=== PATIENT | female | born 1925 | race Caucasian/White ===

== ENCOUNTER → 2016-03-14 | Outpatient (CLI) | payer OTHER, MEDICARE ==
--- NOTE | 2016-03-14 12:26 | MA ---
Screening Digital Mammogram With iCAD Analysis Clinical Indications: Routine screening. The patient has had left breast cancer treated with lumpect donal and radiation. Technique: Standard cephalocaudal and mediolateral oblique projections were obtained. This examinatio n was processed by the iCAD computer aided detection system. Comparison: February 2015, January 2014, February 2013, February 2012, February 2011, January 2010, March 2008. Breast density: Type B; Scattered fibroglandular densities. Findings: CAD was reviewed. Architectural change at the left breast lumpectomy site is stable. No mas ses, suspicious calcifications or other signs of malignancy are identified. There has been no signif icant change in the appearance of either breast. Vascular calcifications are noted. Impression: Benign post lumpectomy mammography, BI-RADS 2 Recommendation: Routine mammographic screening in one year as long as physical examination is neg[facility]. Negative mammography should not preclude additional workup of a clinically suspicious finding. The patient's information is entered into a reminder system with a target due date for her next mammo gram.
== END ==
LOC: BMCIMAGING 10:30
DX: Z12.31 Encounter for screening mammogram for malignant neoplasm of breast (principal); Z85.3 Personal history of malignant neoplasm of breast
CPT/HCPCS: G0202

== ENCOUNTER → 2016-09-11 | Outpatient (CLI) | payer OTHER, MEDICARE | LOC: BHFA 10:00 | PROVIDERS: ATTEND Internal Medicine Cardiovascular Disease | DX: R94.31 Abnormal electrocardiogram [ECG] [EKG] (principal); R01.1 Cardiac murmur, unspecified ==

== ENCOUNTER 2016-09-18 12:52 | Emergency (ER) | payer OTHER, MEDICARE ==
[2016-09-18 12:59] VITALS: RESP 16; TEMP 97.9
--- NOTE | 2016-09-18 14:24 | EDPHY ---
H & P Stated Complaint: L arm injury Time Seen by Provider: 09/18/16 13:33 - Personal History Current Tetanus/Diphtheria Vaccine: Unsure Current Tetanus Diphtheria and Acellular Pertussis (TDAP): Unsure - Medical/Surgical History Hx Asthma: No Hx Chronic Respiratory Disease: No Hx Diabetes: No Hx Cardiac Disease: Yes Hx Renal Disease: No Hx Cirrhosis: No Hx Alcoholism: No Hx HIV/AIDS: No Hx Splenectomy or Spleen Trauma: No Other PMH: Breast cancer, lumpectomy, HTN, CVA - Social History Smoking Status: Never smoked Constitutional: Initial Vital Signs Temperature (C) 36.6 C 09/18/16 12:55 Heart Rate 57 L 09/18/16 12:55 Respiratory Rate 16 09/18/16 12:55 Blood Pressure 146/84 H 09/18/16 12:55 O2 Sat (%) 96 09/18/16 12:55 O2 Delivery Mode Room Air Allergies/Adverse Reactions: WASPS Allergy (Severe, 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/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 Home Medications: Medication Instructions Recorded LORazepam [Ativan (*)] 1 - 2 mg PO HS PRN 01/30/15 Lisinopril [Zestril 20 mg (*)] 20 mg PO DAILY@19 01/30/15 Multivitamins [Multivitamin (*)] 1 tab PO DAILY@19 01/30/15 Apixaban [Eliquis] 2.5 mg PO BID #60 tab 02/02/15 Atorvastatin Calcium [Lipitor 10 10 mg PO DAILY #30 tab 02/02/15 mg (*)] Nebivolol HCl [Bystolic 5 mg (*)] 5 mg PO DAILY #30 tab 02/02/15 Cephalexin [Keflex (RX)] 500 mg PO TID #30 cap 02/06/15 Ondansetron Odt [Zofran Odt 4 mg 4 mg PO Q4 PRN #10 tab 02/06/15 (RX)] Hydrocodone/APAP 5/325 [[place] 1 - 2 each PO Q4-6PRN PRN #20 tab 09/18/16 5/325] Medical Decision Making - Diagnostics Imaging Results: Imaging Impressions Forearm X-Ray 09/18/16 12:59 Impression: 1. Acute angulated distal ulna fracture. 2. Scapholunate ligament tear versus laxity. Imaging: I viewed and interpreted images myself ED Course/Re-evaluation: CHIEF COMPLAINT: Left arm pain HISTORY OF PRESENT ILLNESS: The patient is an anticoagulated 89 y/o female arriving via EMS with her family complaining of left arm pain. She was at the park with her great granddaughter and helping her across a tight rope. The child slipped and fell dragging the patient's left forearm into a wooden post. She had immediate pain along the ulnar aspect of her forearm. She did not fall or hit her head. She denies weakness, paresthesia, lacerations, abrasions, fever , dyspnea, chest pain. REVIEW OF SYSTEMS: A 10 point review of systems was performed and is negative with the exception of the elements mentioned in the history of present illness. PHYSICAL EXAM: HR, BP, O2 Sat, RR. Temp noted General Appearance: Alert, well hydrated, appropriate, and non-toxic appearing. Head: Atraumatic without scalp tenderness or obvious injury Eyes: Pupils equal, round, reactive to light and accommodation, EOMI, no trauma , no injection. Ears: Clear bilaterally, no perforation, normal landmarks Nose: Atraumatic, no rhinorrhea, clear. Throat: Mucus membranes moist. Neck: Supple, non-tender. Respiratory: No retractions, no distress, no wheezes, and no accessory muscle use. Lungs are clear to auscultation bilaterally. Cardiovascular: Regular rate and rhythm, no murmurs, rubs, or gallops. Good capillary refill all extremities. Gastrointestinal: Abdomen is soft, non-tender, non-distended, no masses, no rebound, no guarding, no peritoneal signs. Musculoskeletal: Arrives in an EMS splint. Left forearm tenderness along ulnar aspect. Pain with ROM of left forearm and wrist. Other extremities have normal active ROM and are atraumatic. Neurological: Alert, appropriate, and interactive. Non-focal neuro. Skin: No rashes, good turgor, no nodules on palpation. PAST MEDICAL HISTORY: Hypertension, breast cancer, CVA- Eliquis PAST SURGICAL HISTORY: Lumpectomy, lymph node dissection SOCIAL HISTORY: Family at bedside, lives in [place], retired, [facility] patient Prior medical records reviewed admission note on 01/30/15 DIAGNOSTICS/PROCEDURES/CRITICAL CARE TIME: Left forearm x-ray: Displaced distal ulnar fracture DIFFERENTIAL DIAGNOSIS: The differential diagnosis for the patient's left forearm injury included but was not limited to distal ulnar fracture, ligamentous injury, contusion, muscular strain. MEDICAL DECISION MAKING: The patient is an 89 y/o who presents with tenderness to the left forearm after hitting her arm on a play structure at a park. She has tenderness with any ROM of her left forearm. She is neurovascularly intact distal to the injury, no tenting, skin is intact over the injury, no evidence of compartment syndrome, and joints above and below the injury are stable. No other trauma noted on exam. She is a [facility] patient, therefore we will contact Dr. Aguirre, orthopedist, for a consult. 50mcg IV Fentanyl administered for pain. 1505: Consulted with Dr. Aguirre, orthopedist, he recommends placing her in a splint and following up as an outpatient with his office. Reassessed patient and discussed recommendations. Standard arm fracture and splint care instructions given. She will be discharged with a prescription for [place]. Return precautions given. She is comfortable with this plan. - Data Points Medications Given: Discontinued Medications Fentanyl (Sublimaze) 50 mcg IVP EDNOW ONE Stop: 09/18/16 14:33 Last Admin: 09/18/16 14:47 Dose: 50 mcg Departure - Departure Disposition: Home, Routine, Self-Care Clinical Impression: Distal end of ulna fracture, closed Qualifiers: Encounter type: initial encounter Fracture morphology: other fracture Laterality: left Qualified Code(s): S52.692A - Other fracture of lower end of left ulna, initial encounter for closed fracture Condition: Good Instructions: Hydrocodone/Acetaminophen (By mouth), Arm Fracture in Adults (ED) Additional Instructions: 1. Take [place] as prescribed when needed for severe pain. Narcotics can cause constipation, follow a high fiber diet and take constipation precautions while taking this medication. This medication can make you drowsy, do not drive while taking it. 2. Follow up with Dr. Aguirre, orthopedist, this week without fail. 3. Keep splint in place and dry until follow up. 4. Apply ice and elevate arm when possible. 5. Return to the ED for severe pain, weakness and numbness in your fingers, or worsening of your condition. Referrals: Yoly Martinez MD [Primary Care Provider] - As per Instructions Israel Aguirre MD [Medical Doctor] - As per Instructions Prescriptions: Hydrocodone/APAP 5/325 [[place] 5/325] 1 - 2 each PO Q4-6PRN PRN #20 tab PRN Reason: Pain, Moderate Report Scribed for: Constantine Pulido Report Scribed by: Tamy Altman Date of Report: 09/18/16 Time of Report: 14:45
[2016-09-18] MEDS ORDERED: fentaNYL 100 MCG/2 ML INJ IVP ONE (14:32)
[2016-09-18 14:52] VITALS: BP 142/71; PULSE 50; O2SAT 95
== END 2016-09-18 16:09 | disposition home or self-care (01) ==
LOC: EDUNIT#
PROC: 2W3DX1Z Immobilization of Left Lower Arm using Splint (ICD-10-PCS; principal; 2016-09-18)
DX: S52.692A Other fracture of lower end of left ulna, initial encounter for closed fracture (principal); I10 Essential (primary) hypertension; Z85.3 Personal history of malignant neoplasm of breast; Z86.73 Personal history of transient ischemic attack (TIA), and cerebral infarction without residual deficits; W01.0XXA Fall on same level from slipping, tripping and stumbling without subsequent striking against object, initial encounter
CPT/HCPCS: 29125; 73090; 96374; 99284; J3010

== ENCOUNTER → 2016-09-28 | Outpatient (CLI) | payer OTHER, MEDICARE | LOC: BMCIMAGING 12:40 | PROVIDERS: ATTEND Physician Assistant | DX: S52.692D Other fracture of lower end of left ulna, subsequent encounter for closed fracture with routine healing (principal) ==

== ENCOUNTER → 2016-10-26 | Outpatient (CLI) | payer OTHER, MEDICARE | LOC: BMCIMAGING 10:15 | PROVIDERS: ATTEND Physician Assistant | DX: S52.692D Other fracture of lower end of left ulna, subsequent encounter for closed fracture with routine healing (principal); M81.0 Age-related osteoporosis without current pathological fracture ==

== ENCOUNTER → 2016-11-30 | Outpatient (CLI) | payer OTHER, MEDICARE | LOC: FIMAGING 12:28 | PROVIDERS: ATTEND Physician Assistant | DX: S52.692A Other fracture of lower end of left ulna, initial encounter for closed fracture (principal); S63.592A Other specified sprain of left wrist, initial encounter; M25.832 Other specified joint disorders, left wrist; M77.8 Other enthesopathies, not elsewhere classified ==

== ENCOUNTER 2016-12-11 12:43 | Emergency (ER) | payer OTHER, MEDICARE ==
[2016-12-11 12:52] VITALS: TEMP 98.1
--- NOTE | 2016-12-11 13:54 | EDPHY ---
H & P Time Seen by Provider: 12/11/16 13:21 HPI/ROS: CHIEF COMPLAINT: Fall HISTORY OF PRESENT ILLNESS: Patient is an 89-year-old female with a history of breast cancer, hypertension and CVA who presents emergency department after having a fall. The patient states she woke up normally. She had a normal morning. She was sitting in the chair talking on the phone. When she finished she stood up. On her 2nd step her left knee "just gave out." She had no preceding symptoms. She did not feel lightheaded or dizzy. No chest pain or shortness of breath. She fell and struck her left knee and left ankle. She now has mild left ankle pain and abrasion on her left knee. She denies significant discomfort. She did not strike her head. She did not lose consciousness. No complaints since the fall. No nausea or vomiting. No focal deficits. REVIEW OF SYSTEMS: My complete review of systems is negative except as mentioned in the HPI. Past Medical/Surgical History: Includes CVA, hypertension, breast CA Past surgical history: Includes lumpectomy Social history: The patient does not smoke Smoking Status: Never smoked Physical Exam: Vitals noted GENERAL: Well-appearing, in no acute distress, alert. HEENT: PERRLA, normal pharynx, no signs of dehydration. No visible signs of trauma. NECK: No thyromegaly, no lymphadenopathy, supple. No spinal tenderness. Nexus negative. RESPIRATORY: Clear to auscultation bilaterally, no rales, rhonchi or wheezing. CVS: Regular rate and rhythm, no rubs, murmurs, or gallops. ABDOMEN: Soft, nontender, nondistended, no organomegaly. BACK: Normal to inspection, no CVA tenderness. No spinal tenderness SKIN: Normal color, no rash, warm, dry. No pallor. EXTREMITIES: Patient has an abrasion over her left patella. There is no patellar tenderness or deformity. Patient also has mild tenderness over her lateral malleolus. There is mild swelling. There is no other noted tenderness , deformity or signs of trauma on her other extremities. She has full range of motion. The she was able to stand after the fall. NEURO/PSYCH: Higher functions: Alert and Oriented x3. Normal speech and cognition. Normal mood and affect. Cranial nerves: Normal as tested. Cerebellar: Normal as tested. Good finger to nose, good [id number], normal gait. Peripheral exam: Normal motor exam. Normal sensation. Normal reflexes. 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 Knee X-Ray 12/11/16 13:56 Impression: Normal. ED Course/Re-evaluation: In the emergency room discussed possible etiologies with the patient. I answered all her questions. An x-ray of her left ankle and left knee was performed. Laboratory studies were obtained. Left foot x-ray: Please refer the dictated report. The patient has a fracture at the base of her left 5th metatarsal. Sinus rhythm. First-degree AV block. Left axis deviation. No CT abnormality. The CBC, chemistry and troponin were negative. Left knee x-ray: Please refer the dictated report. No acute disease noted. I discussed the results with the patient. A Britton boot was placed. She ambulated well in the emergency department. She was stable. She is given warnings prior to leaving. She will return with worsening symptoms. Differential Diagnosis: My differential includes but is not limited to mechanical fall, disruption of the knee ligaments, knee injury, ankle sprain, ankle strain, ankle contusion, ankle fracture. The patient denies striking her head. She has no headache. I doubt closed head injury. I doubt subarachnoid hemorrhage, subdural hematoma or epidural hematoma. I am aware the patient is on Eliquis. - Data Points Laboratory Results: Laboratory Results 12/11/16 14:27 12/11/16 14:27 12/11/16 12/11/16 14:27 14:27 WBC 7.74 10^3/uL 10^3/uL (3.80-9.50) RBC 4.28 10^6/uL 10^6/uL (4.18-5.33) Hgb 14.1 g/dL g/dL (12.6-16.3) Hct 41.9 % % (38.0-47.0) MCV 97.9 fL fL (81.5-99.8) MCH 32.9 pg pg (27.9-34.1) MCHC 33.7 g/dL g/dL (32.4-36.7) RDW 12.7 % % (11.5-15.2) Plt Count 245 10^3/uL 10^3/uL (150-400) MPV 8.9 fL fL (8.7-11.7) Neut % (Auto) 69.3 % % (39.3-74.2) Lymph % (Auto) 22.9 % % (15.0-45.0) Rowan % (Auto) 6.1 % % (4.5-13.0) Eos % (Auto) 0.9 % % (0.6-7.6) Baso % (Auto) 0.4 % % (0.3-1.7) Nucleat RBC Rel Count 0.0 % % (0.0-0.2) Absolute Neuts (auto) 5.37 10^3/uL 10^3/uL (1.70-6.50) Absolute Lymphs (auto) 1.77 10^3/uL 10^3/uL (1.00-3.00) Absolute Monos (auto) 0.47 10^3/uL 10^3/uL (0.30-0.80) Absolute Eos (auto) 0.07 10^3/uL 10^3/uL (0.03-0.40) Absolute Basos (auto) 0.03 10^3/uL 10^3/uL (0.02-0.10) Absolute Nucleated RBC 0.00 10^3/uL 10^3/uL (0-0.01) Immature Gran % 0.4 % % (0.0-1.1) Immature Gran # 0.03 10^3/uL 10^3/uL (0.00-0.10) Sodium 140 mEq/L mEq/L (134-144) Potassium 4.7 mEq/L mEq/L (3.5-5.2) Chloride 99 mEq/L mEq/L (97-110) Carbon Dioxide 25 mEq/l mEq/l (22-31) Anion Gap 16 mEq/L mEq/L (8-16) BUN 34 mg/dL H mg/dL (7-23) Creatinine 0.9 mg/dL mg/dL (0.6-1.0) Estimated GFR 59 Glucose 95 mg/dL mg/dL (70-100) Calcium 10.0 mg/dL mg/dL (8.5-10.4) Troponin I < 0.012 ng/mL ng/mL (0.000-0.034) Departure - Departure Disposition: Home, Routine, Self-Care Clinical Impression: Fracture of 5th metatarsal Qualifiers: Encounter type: initial encounter Fracture type: closed Fracture alignment: nondisplaced Laterality: left Qualified Code(s): S92.355A - Nondisplaced fracture of fifth metatarsal bone, left foot, initial encounter for closed fracture Condition: Good Instructions: Foot Fracture in Adults (ED) Additional Instructions: Keep your appointment with the [facility]. If you have difficulty with follow- up you can call Dr. Mcelroy. He has an orthopedic surgeon. Referrals: Yoly Martinez MD [Primary Care Provider] - As per Instructions Karthik Mcelroy MD [Medical Doctor] - 5-7 days, call for appt.
[2016-12-11 14:33] LABS: % IMMATURE GRANULYOCYTES 0.4 % (0.0-1.1); ABSOLUTE IMMATURE GRANULOCYTES 0.03 10^3/uL (0.00-0.10); ADD DIFF? NO; ADD MORPH? NO; ADD SCAN? NO; ATYPICAL LYMPHOCYTE FLAG 10 (0-99); FRAGMENT RBC FLAG 0 (0-99); HEMATOCRIT 41.9 % (38.0-47.0); HEMOGLOBIN 14.1 g/dL (12.6-16.3); LEFT SHIFT FLG 0 (0-99); LIPEMIA HEMOLYSIS FLAG 80 (0-99); MEAN CELL HEMOGLOBIN 32.9 pg (27.9-34.1); MEAN CELL HEMOGLOBIN CONCENTR. 33.7 g/dL (32.4-36.7); MEAN CELL VOLUME 97.9 fL (81.5-99.8); MEAN PLATELET VOLUME 8.9 fL (8.7-11.7); PLATELET CLUMPS FLAG 0 (0-99); PLATELET COUNT 245 10^3/uL (150-400); RED BLOOD CELL COUNT 4.28 10^6/uL (4.18-5.33); RED CELL DISTRIBUTION WIDTH 12.7 % (11.5-15.2)
--- NOTE | 2016-12-11 14:39 | CPEKG ---
Heart Rate: 57 RR Interval: 1053 P-R Interval: 224 QRSD Interval: 82 QT Interval: 484 QTC Interval: 472 P [place]: 93 QRS [place]: -36 T Wave [place]: -38 EKG Severity - ABNORMAL ECG - EKG Impression: SINUS RHYTHM EKG Impression: FIRST DEGREE AV BLOCK EKG Impression: LEFT AXIS DEVIATION EKG Impression: BORDERLINE T ABNORMALITIES, DIFFUSE LEADS Electronically Signed By: Ashley Bonilla 11-Dec-2016 20:36:44
[2016-12-11 14:46] LABS: ANION GAP 16 mEq/L (8-16); CARBON DIOXIDE 25 mEq/l (22-31); CHLORIDE 99 mEq/L (97-110); CREATININE 0.9 mg/dL (0.6-1.0); GLOMERULAR FILTRATION RATE 59; GLUCOSE 95 mg/dL (70-100); POTASSIUM 4.7 mEq/L (3.5-5.2); SODIUM 140 mEq/L (134-144)
[2016-12-11 14:58] LABS: TROPONIN I < 0.012 ng/mL (0.000-0.034)
[2016-12-11 16:21] VITALS: BP 139/76; PULSE 96; RESP 16; O2SAT 95
== END 2016-12-11 16:46 | disposition home or self-care (01) ==
LOC: EDUNIT#
DX: S92.355A Nondisplaced fracture of fifth metatarsal bone, left foot, initial encounter for closed fracture (principal); I10 Essential (primary) hypertension; Z85.3 Personal history of malignant neoplasm of breast; Z86.73 Personal history of transient ischemic attack (TIA), and cerebral infarction without residual deficits; W01.198A Fall on same level from slipping, tripping and stumbling with subsequent striking against other object, initial encounter; Y99.8 Other external cause status

== ENCOUNTER → 2017-01-01 | Outpatient (CLI) | payer OTHER, MEDICARE | LOC: BMCIMAGING 10:27 | PROVIDERS: ATTEND Orthopaedic Surgery Hand Surgery | DX: S92.355D Nondisplaced fracture of fifth metatarsal bone, left foot, subsequent encounter for fracture with routine healing (principal); S52.202D Unspecified fracture of shaft of left ulna, subsequent encounter for closed fracture with routine healing ==

== ENCOUNTER → 2017-02-28 | Outpatient (CLI) | payer OTHER, MEDICARE | LOC: BMCIMAGING 13:34 | PROVIDERS: ATTEND Orthopaedic Surgery Hand Surgery | DX: S52.602D Unspecified fracture of lower end of left ulna, subsequent encounter for closed fracture with routine healing (principal); S92.355D Nondisplaced fracture of fifth metatarsal bone, left foot, subsequent encounter for fracture with routine healing ==